=== PATIENT | female | born 1960 | race Caucasian/White ===

== ENCOUNTER 2016-06-09 07:35 | Emergency (ER) | payer MEDICARE ==
[~2016-06-09] VITALS: Ht 172.7 cm; Wt 57.5 kg
[~2016-06-09 07:35] MED LIST: CEFD300C2 PO; CLAR500T3 PO; HYDR-3138 PO; LEVO500T33 PO; METR500T PO; METR500T4 PO; NAPR500T3 PO; OMEP-110 PO; ONDA4TAB10 PO; OXYC-229 PO; OXYC10TA6 PO; OXYC5CAP4 PO; POLY17PO5 PO; PROM25SU34 PO; PROM25TA10 PO
[2016-06-09 07:43] VITALS: BP 181/84
[2016-06-09] MEDS ORDERED: TRAM50TA2 PO (08:15)
[2016-06-09] MEDS ORDERED: PROM25TA10 PO (08:15)
[2016-06-09] MEDS ORDERED: ALBUTEROL/IPRATROPIUM 2.5MG/0.5MG, 3 ML NPPB ONE (08:30)
[2016-06-09] MEDS ORDERED: PROMETHAZINE 25MG TABLET PO ONE (09:00)
[2016-06-09 09:04] LABS: BLOOD UREA NITROGEN 19 mg/dL (7-18)
[2016-06-09 09:10] LABS: ASPARTATE AMINO TRANSFERASE 123 U/L (15-37)
[2016-06-09 09:11] LABS: IS PT STATUS REG ER OR PRE ER? YES
[2016-06-09] MEDS ORDERED: ALBUTEROL/IPRATROPIUM 2.5MG/0.5MG, 3 ML ONE (09:28)
[2016-06-09] MEDS ORDERED: PROMETHAZINE 25 MG/ML, 1ML ONE (09:39)
[2016-06-09] MEDS ORDERED: PROMETHAZINE 25 MG/ML, 1ML IM ONE (10:00)
== END 2016-06-09 10:24 | disposition home or self-care (01) ==
LOC: ED 09:41
DX: J45.909 Unspecified asthma, uncomplicated (principal); J20.8 Acute bronchitis due to other specified organisms; R11.10 Vomiting, unspecified; R74.0 Nonspecific elevation of levels of transaminase and lactic acid dehydrogenase [LDH]; J20.9 Acute bronchitis, unspecified
CPT/HCPCS: 36415; 71020; 80053; 83880; 84484; 85025; 93005; 94640; 96372; 99285; J2550; J7620; Q0169

== ENCOUNTER 2016-06-25 06:50 | Emergency (ER) | payer MEDICARE ==
[~2016-06-25] VITALS: Ht 172.7 cm; Wt 54.4 kg
[~2016-06-25 06:50] MED LIST changes: +TRAM50TA2 PO
[2016-06-25] MEDS ORDERED: SODIUM CHLORIDE 0.9% 1,000 ML IV ONE (07:28)
[2016-06-25] MEDS ORDERED: MORPHINE SULFATE 4 MG/ML, 1ML IVPush PRN (07:30)
[2016-06-25] MEDS ORDERED: MAALOX/HYOSCYAMINE/LIDOCAINE 45 ML BOTTLE PO ONE (07:30)
[2016-06-25] MEDS ORDERED: FAMOTIDINE 20 MG/2 ML IVP ONE (07:30)
[2016-06-25] MEDS ORDERED: ONDANSETRON 2MG/ML, 2ML IVPush ONE (07:30)
[2016-06-25] MEDS ORDERED: PROMETHAZINE 25 MG/ML, 1ML IM ONE (07:30)
[2016-06-25] MEDS ORDERED: MORPHINE SULFATE 4 MG/ML, 1ML ONE (07:49)
[2016-06-25] MEDS ORDERED: MAALOX/HYOSCYAMINE/LIDOCAINE 45 ML BOTTLE ONE (07:50)
[2016-06-25] MEDS ORDERED: ONDANSETRON 2MG/ML, 2ML ONE (07:50)
[2016-06-25] MEDS ORDERED: FAMOTIDINE 20 MG/2 ML ONE (07:50)
[2016-06-25 08:03] LABS: HEMOGLOBIN 15.2 g/dL (11.7-16.4)
[2016-06-25] MEDS ORDERED: PROMETHAZINE 25 MG/ML, 1ML ONE (08:08)
[2016-06-25 08:17] LABS: BLOOD UREA NITROGEN 23 mg/dL (7-18)
[2016-06-25 08:20] LABS: ASPARTATE AMINO TRANSFERASE 90 U/L (15-37)
[2016-06-25 11:04] VITALS: BP 152/59
== END 2016-06-25 11:09 | disposition home or self-care (01) ==
LOC: ED 09:52
DX: K29.00 Acute gastritis without bleeding (principal); J45.909 Unspecified asthma, uncomplicated; Z90.49 Acquired absence of other specified parts of digestive tract; Z90.710 Acquired absence of both cervix and uterus; Z85.43 Personal history of malignant neoplasm of ovary; Z90.721 Acquired absence of ovaries, unilateral; F12.10 Cannabis abuse, uncomplicated
CPT/HCPCS: 36415; 74022; 80053; 81003; 83605; 83690; 85025; 96361; 96372; 96374; 96375; 99285; J2405; J2550; J7030; S0028

== ENCOUNTER 2016-08-26 07:07 | Inpatient (IN) | payer MEDICARE ==
[~2016-08-26] VITALS: Ht 172.7 cm; Wt 58.0 kg
[~2016-08-26 07:07] MED LIST changes: -CEFD300C2 PO; +CEFD300C37 PO
[2016-08-26] MEDS ORDERED: PROMETHAZINE 25 MG/ML, 1ML ONE (07:22)
[2016-08-26] MEDS ORDERED: SODIUM CHLORIDE 0.9% 1,000 ML IV ONE (07:24)
[2016-08-26] MEDS ORDERED: HYDR-3307 PO (07:26)
[2016-08-26] MEDS ORDERED: FAMOTIDINE 20 MG/2 ML IVP ONE (07:30)
[2016-08-26] MEDS ORDERED: SODIUM CHLORIDE 0.9% 1,000ML IVBOLUS ONE (07:30)
[2016-08-26] MEDS ORDERED: SODIUM CHLORIDE FLUSH 10ML SYR IVF ONE (07:30)
[2016-08-26] MEDS ORDERED: PROMETHAZINE 25 MG/ML, 1ML IM ONE (07:30)
[2016-08-26] MEDS ORDERED: FAMOTIDINE 20 MG/2 ML ONE (08:00)
[2016-08-26] MEDS ORDERED: MORPHINE SULFATE 4 MG/ML, 1ML ONE ×4 (08:00→22:43)
[2016-08-26] MEDS: MORPHINE SULFATE 4 MG/ML, 1ML IVPush PRN ×2 (08:06→09:59)
[2016-08-26] MEDS ORDERED: ONDANSETRON 2MG/ML, 2ML ONE (08:22)
[2016-08-26] MEDS ORDERED: ONDANSETRON ODT 4 MG PO ONE (08:30)
[2016-08-26 08:31] LABS: ASPARTATE AMINO TRANSFERASE 30 U/L (15-37); BLOOD UREA NITROGEN 14 mg/dL (7-18)
[2016-08-26] MEDS ORDERED: OMNIPAQUE 350 MG/ML, 100ML BOTTLE ONE (09:32)
[2016-08-26] MEDS ORDERED: ONDANSETRON ODT 4 MG ONE (09:53)
[2016-08-26] MEDS ORDERED: CEFTRIAXONE PMX 1GM/50ML 50 ML ONE (10:30)
[2016-08-26] MEDS ORDERED: LABETALOL 5MG/ML, 20ML IVPush PRN (10:30)
[2016-08-26] MEDS ORDERED: DIPHENHYDRAMINE 50 MG/ML, 1ML ONE (10:38)
[2016-08-26] MEDS: CEFTRIAXONE 1,000 MG in SODIUM CHLORIDE 0.9% 50 ML IV SCH ×2 (10:39→12:04)
[2016-08-26] MEDS ORDERED: MAALOX/HYOSCYAMINE/LIDOCAINE 45 ML BOTTLE PO SCH (11:00)
[2016-08-26] MEDS ORDERED: DIPHENHYDRAMINE 50 MG/ML, 1ML IVPush ONE (11:00)
[2016-08-26] MEDS ORDERED: ALBUTEROL/IPRATROPIUM 2.5MG/0.5MG, 3 ML ONE (11:57)
[2016-08-26] MEDS: D5%-0.45% NACL 1,000 ML IV SCH ×2 (12:06→22:00)
[2016-08-26 12:45] VITALS: BP 120/75
[2016-08-26] MEDS: morphine SULFATE 10 MG/ML, 1ML IVPush PRN ×4 (12:52→22:46)
[2016-08-26] MEDS: ONDANSETRON 2MG/ML, 2ML IVPush PRN ×2 (12:53→19:26)
[2016-08-26] MEDS ORDERED: CEFTRIAXONE PMX 1GM/50ML 50 ML IV SCH (12:54)
[2016-08-26] MEDS: ONDANSETRON ODT 4 MG PO PRN (14:58)
[2016-08-26] MEDS: METRONIDAZOLE PMX 500MG/100ML 100 ML IV SCH ×2 (14:58→22:46)
[2016-08-26] MEDS: ENOXAPARIN 40 MG/0.4 ML SQ SCH (14:58)
[2016-08-26] MEDS: ALBUTEROL/IPRATROPIUM 2.5MG/0.5MG, 3 ML NPPB SCH ×2 (15:20→18:56)
[2016-08-26 19:13] VITALS: BP 103/63
[2016-08-26 19:39] VITALS: BP 109/70
[2016-08-26 20:17] LABS: DAU SCREEN DISCLAIMER
[2016-08-26 20:33] LABS: PATH.CAST-FLAG NOT PRESENT; SPERM-FLAG NOT PRESENT; SRC-FLAG NOT PRESENT; XTAL-FLAG NOT PRESENT; YLC-FLAG NOT PRESENT
[2016-08-27] MEDS: ONDANSETRON 2MG/ML, 2ML IVPush PRN ×4 (00:59→20:08)
[2016-08-27] MEDS ORDERED: MORPHINE SULFATE 4 MG/ML, 1ML ONE ×2 (02:07→05:13)
[2016-08-27] MEDS: morphine SULFATE 10 MG/ML, 1ML IVPush PRN ×6 (02:10→23:22)
[2016-08-27 02:53] VITALS: BP 117/77
[2016-08-27 05:43] LABS: BLOOD UREA NITROGEN 7 mg/dL (7-18)
[2016-08-27 05:48] LABS: ASPARTATE AMINO TRANSFERASE 49 U/L (15-37)
[2016-08-27 05:55] LABS: DIFF TOTAL CELLS COUNTED 100 CELL DIFF
[2016-08-27 06:01] LABS: VERIFY COUNTS? YES
[2016-08-27] MEDS: METRONIDAZOLE PMX 500MG/100ML 100 ML IV SCH ×3 (07:23→23:22)
[2016-08-27] MEDS: D5%-0.45% NACL 1,000 ML IV SCH (07:24)
[2016-08-27] MEDS: ALBUTEROL/IPRATROPIUM 2.5MG/0.5MG, 3 ML NPPB SCH ×5 (07:45→20:42)
[2016-08-27] MEDS: HYDROcodone/APAP 5/325 TABLET PO PRN ×3 (08:23→15:46)
[2016-08-27 08:28] VITALS: BP_SYST 176; BP_SYST 180; BP_DIAS 100; BP_DIAS 93
[2016-08-27] MEDS ORDERED: MAGNESIUM SULFATE PMX 4GM/100M 100 ML IV ONE (10:00)
[2016-08-27] MEDS ORDERED: METOCLOPRAMIDE 5 MG/ML, 2ML IVPush ONE (10:00)
[2016-08-27] MEDS: AMLODIPINE 5 MG TABLET PO SCH (10:53)
[2016-08-27 10:57] VITALS: BP 155/82
[2016-08-27] MEDS ORDERED: CEFTRIAXONE PMX 1GM/50ML 50 ML IV SCH (12:00)
[2016-08-27 13:02] VITALS: BP 147/92
[2016-08-27] MEDS: ENOXAPARIN 40 MG/0.4 ML SQ SCH (14:39)
[2016-08-27 19:24] VITALS: BP 127/67
[2016-08-27] MEDS: PROMETHAZINE 25 MG/ML, 1ML IM PRN ×2 (19:35→23:11)
[2016-08-27] MEDS: SODIUM CHLORIDE 0.9% 1,000 ML IV SCH (20:08)
[2016-08-28 01:06] VITALS: BP 136/75
[2016-08-28] MEDS: ONDANSETRON ODT 4 MG PO PRN ×3 (01:17→19:44)
[2016-08-28] MEDS: ONDANSETRON 2MG/ML, 2ML IVPush PRN ×4 (02:05→19:55)
[2016-08-28] MEDS: morphine SULFATE 10 MG/ML, 1ML IVPush PRN ×8 (02:12→22:29)
[2016-08-28] MEDS: PROMETHAZINE 25 MG/ML, 1ML IM PRN ×5 (03:50→22:29)
[2016-08-28] MEDS: HYDROcodone/APAP 5/325 TABLET PO PRN ×5 (04:20→19:44)
[2016-08-28 05:06] LABS: BLOOD UREA NITROGEN 2 mg/dL (7-18)
[2016-08-28] MEDS: SODIUM CHLORIDE 0.9% 1,000 ML IV SCH ×2 (05:46→19:44)
[2016-08-28 06:45] VITALS: BP 147/87
[2016-08-28] MEDS ORDERED: CYANOCOBALAMIN 1,000 MCG/ML, 1ML IM ONE (07:00)
[2016-08-28] MEDS: CYANOCOBALAMIN 1,000 MCG TABLET PO SCH ×2 (07:00→09:00)
[2016-08-28] MEDS: ALBUTEROL/IPRATROPIUM 2.5MG/0.5MG, 3 ML NPPB SCH ×2 (07:00→11:00)
[2016-08-28] MEDS: METRONIDAZOLE PMX 500MG/100ML 100 ML IV SCH (07:42)
[2016-08-28] MEDS: AMLODIPINE 5 MG TABLET PO SCH (07:50)
[2016-08-28] MEDS ORDERED: METOCLOPRAMIDE 5 MG/ML, 2ML IVPush PRN (09:00)
[2016-08-28] MEDS ORDERED: ACETAMINOPHEN 325 MG TABLET PO PRN (09:00)
[2016-08-28] MEDS ORDERED: DIPHENHYDRAMINE 50 MG/ML, 1ML IVPush ONE (09:00)
[2016-08-28] MEDS ORDERED: methylPREDNISolone SOD SUCC 125 MG/2 ML IVPush ONE (09:00)
[2016-08-28] MEDS: PIPERACILLIN/TAZO/PMX 3.375GM 50 ML IV SCH ×3 (11:12→22:28)
[2016-08-28] MEDS: ENOXAPARIN 40 MG/0.4 ML SQ SCH (12:10)
[2016-08-28 13:40] VITALS: BP 126/74
[2016-08-28] MEDS ORDERED: OMNIPAQUE 350 MG/ML, 100ML BOTTLE ONE (17:19)
[2016-08-28 20:09] VITALS: BP 147/89
[2016-08-29] MEDS: morphine SULFATE 10 MG/ML, 1ML IVPush PRN ×2 (02:09→03:58)
[2016-08-29] MEDS: ONDANSETRON 2MG/ML, 2ML IVPush PRN ×3 (02:09→21:40)
[2016-08-29 02:10] VITALS: BP 149/77
[2016-08-29] MEDS: PIPERACILLIN/TAZO/PMX 3.375GM 50 ML IV SCH ×4 (03:58→22:49)
[2016-08-29] MEDS: PROMETHAZINE 25 MG/ML, 1ML IM PRN ×4 (04:00→17:43)
[2016-08-29 04:58] LABS: ASPARTATE AMINO TRANSFERASE 31 U/L (15-37); BLOOD UREA NITROGEN 5 mg/dL (7-18)
[2016-08-29] MEDS: HYDROcodone/APAP 5/325 TABLET PO PRN ×4 (06:29→20:45)
[2016-08-29] MEDS: SODIUM CHLORIDE 0.9% 1,000 ML IV SCH ×2 (06:29→15:37)
[2016-08-29 08:11] VITALS: BP 155/99
[2016-08-29] MEDS: CYANOCOBALAMIN 1,000 MCG TABLET PO SCH (10:08)
[2016-08-29] MEDS: AMLODIPINE 5 MG TABLET PO SCH (10:08)
[2016-08-29] MEDS: ONDANSETRON ODT 4 MG PO PRN (12:08)
[2016-08-29] MEDS: ALBUTEROL/IPRATROPIUM 2.5MG/0.5MG, 3 ML NPPB PRN (12:20)
[2016-08-29 12:52] VITALS: BP 124/76
[2016-08-29] MEDS: ENOXAPARIN 40 MG/0.4 ML SQ SCH (15:25)
[2016-08-29] MEDS: MORPHINE SULFATE 4 MG/ML, 1ML IVPush PRN ×2 (15:38→19:38)
[2016-08-29 18:37] VITALS: BP 132/81
[2016-08-30 00:57] VITALS: BP 146/93
[2016-08-30] MEDS: MORPHINE SULFATE 4 MG/ML, 1ML IVPush PRN ×3 (01:08→08:56)
[2016-08-30] MEDS: PROMETHAZINE 25 MG/ML, 1ML IM PRN ×3 (01:08→08:57)
[2016-08-30] MEDS: ONDANSETRON 2MG/ML, 2ML IVPush PRN ×2 (03:38→10:22)
[2016-08-30] MEDS: PIPERACILLIN/TAZO/PMX 3.375GM 50 ML IV SCH ×4 (04:44→23:17)
[2016-08-30 07:17] VITALS: BP 158/96
[2016-08-30] MEDS: CYANOCOBALAMIN 1,000 MCG TABLET PO SCH (07:25)
[2016-08-30] MEDS: HYDROcodone/APAP 5/325 TABLET PO PRN ×4 (07:25→20:14)
[2016-08-30] MEDS: AMLODIPINE 5 MG TABLET PO SCH (07:25)
[2016-08-30] MEDS: PROMETHAZINE 25MG TABLET PO PRN ×3 (13:06→21:51)
[2016-08-30] MEDS: ENOXAPARIN 40 MG/0.4 ML SQ SCH (13:06)
[2016-08-30 13:20] VITALS: BP 130/83
[2016-08-30] MEDS: ONDANSETRON ODT 4 MG PO PRN ×2 (15:47→20:14)
[2016-08-30 19:27] VITALS: BP 128/76
[2016-08-31 01:45] VITALS: BP 134/85
[2016-08-31] MEDS: ONDANSETRON ODT 4 MG PO PRN ×3 (02:25→17:06)
[2016-08-31] MEDS: HYDROcodone/APAP 5/325 TABLET PO PRN ×4 (02:34→17:03)
[2016-08-31 02:51] LABS: BLOOD UREA NITROGEN 11 mg/dL (7-18)
[2016-08-31] MEDS: PIPERACILLIN/TAZO/PMX 3.375GM 50 ML IV SCH ×2 (05:37→10:54)
[2016-08-31] MEDS: PROMETHAZINE 25MG TABLET PO PRN ×2 (05:38→10:54)
[2016-08-31 07:09] VITALS: BP 132/80
[2016-08-31] MEDS: CYANOCOBALAMIN 1,000 MCG TABLET PO SCH (08:09)
[2016-08-31] MEDS: AMLODIPINE 5 MG TABLET PO SCH (08:09)
[2016-08-31] MEDS: ALBUTEROL/IPRATROPIUM 2.5MG/0.5MG, 3 ML NPPB PRN (08:22)
[2016-08-31] MEDS: ENOXAPARIN 40 MG/0.4 ML SQ SCH (12:48)
[2016-08-31] MEDS ORDERED: METR500T PO (15:08)
[2016-08-31] MEDS ORDERED: AMLO5TAB2 PO (15:08)
[2016-08-31] MEDS ORDERED: CYAN10005 PO (15:08)
[2016-08-31] MEDS ORDERED: CIPR500T87 PO (15:08)
[2016-08-31 15:58] VITALS: BP 119/74
== END 2016-08-31 17:15 | disposition home or self-care (01) | DRG 392 ==
LOC: ED 09:06 → EDIP 09:48 → 4WST 12:42 → 3NW 19:36
PROC: B5181ZA Fluoroscopy of Superior Vena Cava using Low Osmolar Contrast, Guidance (ICD-10-PCS; principal; 2016-08-29)
PROC: 02HV33Z Insertion of Infusion Device into Superior Vena Cava, Percutaneous Approach (ICD-10-PCS; 2016-08-29)
PROC: B548ZZA Ultrasonography of Superior Vena Cava, Guidance (ICD-10-PCS; 2016-08-29)
DX: K57.92 Diverticulitis of intestine, part unspecified, without perforation or abscess without bleeding (principal); E44.0 Moderate protein-calorie malnutrition; D69.3 Immune thrombocytopenic purpura; D75.89 Other specified diseases of blood and blood-forming organs; E53.8 Deficiency of other specified B group vitamins; N28.1 Cyst of kidney, acquired; E83.41 Hypermagnesemia; G89.29 Other chronic pain; R73.9 Hyperglycemia, unspecified; F17.210 Nicotine dependence, cigarettes, uncomplicated; J45.909 Unspecified asthma, uncomplicated; K31.84 Gastroparesis; Z82.3 Family history of stroke; Z83.3 Family history of diabetes mellitus; Z85.41 Personal history of malignant neoplasm of cervix uteri; Z85.43 Personal history of malignant neoplasm of ovary; Z86.19 Personal history of other infectious and parasitic diseases; Z87.11 Personal history of peptic ulcer disease; Z90.81 Acquired absence of spleen; Z87.19 Personal history of other diseases of the digestive system; Z90.49 Acquired absence of other specified parts of digestive tract; Z90.710 Acquired absence of both cervix and uterus; Z88.0 Allergy status to penicillin; Z90.79 Acquired absence of other genital organ(s); Z90.722 Acquired absence of ovaries, bilateral
CPT/HCPCS: 36415; 36569; 70491; 74177; 76937; 77001; 80048; 80053; 80307; 81001; 81003; 82040; 82607; 82746; 83690; 83735; 84100; 84439; 84443; 85025; 85610; 87040; 87086; 94640; 96372; 96374; J0696; J1650; J2405; J2543; J2550; J7620; Q0162; Q0169; Q9967; C1751; J1200; J2270; J2765; J2930; J3420; J3475; J7030; S0028

== ENCOUNTER 2016-09-06 10:26 | Emergency (ER) | payer MEDICARE ==
[~2016-09-06] VITALS: Ht 172.7 cm; Wt 54.0 kg
[~2016-09-06 10:26] MED LIST changes: +AMLO5TAB2 PO; +CIPR500T87 PO; +CYAN10005 PO; +HYDR-3307 PO
[2016-09-06] MEDS ORDERED: HYDROmorphone 1 MG/ML, 1ML IVPush PRN (11:30)
[2016-09-06] MEDS ORDERED: SODIUM CHLORIDE 0.9% 1,000ML IVBOLUS ONE (11:30)
[2016-09-06] MEDS ORDERED: SODIUM CHLORIDE FLUSH 10ML SYR IVF ONE (11:30)
[2016-09-06] MEDS ORDERED: METOCLOPRAMIDE 5 MG/ML, 2ML IVPush ONE (11:30)
[2016-09-06] MEDS ORDERED: METOCLOPRAMIDE 5 MG/ML, 2ML ONE (11:44)
[2016-09-06] MEDS ORDERED: HYDROmorphone 1 MG/ML, 1ML ONE (11:44)
[2016-09-06 11:56] LABS: BLOOD UREA NITROGEN 7 mg/dL (7-18)
[2016-09-06 12:00] LABS: ASPARTATE AMINO TRANSFERASE 50 U/L (15-37)
[2016-09-06 13:18] VITALS: BP 135/72
== END 2016-09-06 13:59 | disposition home or self-care (01) ==
LOC: ED 13:03
DX: R10.31 Right lower quadrant pain (principal); R10.32 Left lower quadrant pain; Z85.43 Personal history of malignant neoplasm of ovary; Z85.41 Personal history of malignant neoplasm of cervix uteri; J45.909 Unspecified asthma, uncomplicated; Z90.49 Acquired absence of other specified parts of digestive tract; Z90.710 Acquired absence of both cervix and uterus; Z90.721 Acquired absence of ovaries, unilateral; Z88.0 Allergy status to penicillin; Z87.891 Personal history of nicotine dependence
CPT/HCPCS: 36415; 80053; 81001; 83605; 83690; 85025; 87086; 96361; 96374; 96375; 99284; J1170; J2765; J7030

== ENCOUNTER 2017-07-05 11:29 | Emergency (ER) | payer MEDICARE ==
[~2017-07-05] VITALS: Ht 172.7 cm; Wt 52.5 kg
[~2017-07-05 11:29] MED LIST changes: +CIPR500T3 PO; -HYDR-3138 PO; +HYDR-3237 PO; +HYDR25CA PO; -LEVO500T33 PO; +LEVO500T47 PO; -METR500T4 PO; +METR500T8 PO; +NAPR-685 PO; -NAPR500T3 PO; +ONDA4TAB7 PO; -OXYC-229 PO; +OXYC-307 PO; +OXYC5CAP2 PO; -OXYC5CAP4 PO
[2017-07-05 11:43] VITALS: BP 134/81
== END 2017-07-05 13:49 | disposition home or self-care (01) ==
LOC: ED 13:45
DX: I80.8 Phlebitis and thrombophlebitis of other sites (principal); M25.572 Pain in left ankle and joints of left foot; J44.9 Chronic obstructive pulmonary disease, unspecified; F43.10 Post-traumatic stress disorder, unspecified; K51.90 Ulcerative colitis, unspecified, without complications; Z85.41 Personal history of malignant neoplasm of cervix uteri; Z85.43 Personal history of malignant neoplasm of ovary; Z90.49 Acquired absence of other specified parts of digestive tract; Z90.710 Acquired absence of both cervix and uterus
CPT/HCPCS: 99284